=== PATIENT | female | born 1955 | race African-American/Black ===

== ENCOUNTER 2017-07-22 10:19 | Inpatient (IN) | payer OTHER ==
[~2017-07-22] VITALS: Ht 165.1 cm; Wt 74.8 kg
[2017-07-22] MEDS ORDERED: ONDANSETRON PF 4 MG/2 ML VIAL. IV ONE ×2 (11:00→12:15)
[2017-07-22] MEDS ORDERED: FAMOTIDINE 20 MG/2 ML VIAL IVP ONE (11:00)
[2017-07-22] MEDS ORDERED: ASPIRIN 325 MG TABLET PO ONE (11:00)
[2017-07-22 11:01] LABS: BASO % 0 % (0-3); EOS % 0 % (0-3); HEMATOCRIT 42.6 % (36.0-47.0); HEMOGLOBIN 14.7 g/dL (12.0-15.5); LYMPH # 0.9 x10^3/uL (1.0-4.8); LYMPH % 9 % (24-48); MEAN CORPUSCULAR HEMOGLOBIN 33 pg (25-35); MEAN CORPUSCULAR HGB CONC 35 g/dL (31-37); MEAN CORPUSCULAR VOLUME 96 fL (79-100); MONO % 5 % (0-9); NEUT % 85 % (31-73); PLATELET COUNT 134 x10^3/uL (140-400); RED BLOOD COUNT 4.44 x10^6/uL (3.50-5.40); RED CELL DISTRIBUTION WIDTH 14.9 % (11.5-14.5); WHITE BLOOD COUNT 9.7 x10^3/uL (4.0-11.0)
[2017-07-22] MEDS: MORPHINE SULFATE 4 MG/ML DISP.SYRIN. IV/SQ PRN ×2 (11:05→12:28)
[2017-07-22 11:10] LABS: BARBITURATES NEG (NEG); BENZODIAZEPINES NEG (NEG); CANNABINOIDS POS (NEG); COCAINE NEG (NEG); METHADONE NEG (NEG); OPIATES NEG (NEG); PHENCYCLIDINE NEG (NEG)
[2017-07-22 11:12] LABS: CALCIUM 9.1 mg/dL (8.5-10.1); CREATININE 0.9 mg/dL (0.6-1.0); GFR 76.3; POTASSIUM 3.2 mmol/L (3.5-5.1)
[2017-07-22 11:14] LABS: BILIRUBIN,URINE NEGATIVE (NEG); GLUCOSE,URINE NEGATIVE (NEG); NITRITE,URINE NEGATIVE (NEG); PH,URINE 5.5; PROTEIN,URINE 30 mg/dL (NEG-TRACE); UROBILINOGEN,URINE 0.2 mg/dL (0.2 mg/dL)
[2017-07-22 11:19] LABS: ALBUMIN 3.9 g/dL (3.4-5.0); ALBUMIN/GLOBULIN RATIO 1.1 (1.0-1.7); MAGNESIUM 1.3 mg/dL (1.8-2.4); TOTAL BILIRUBIN 1.1 mg/dL (0.2-1.0); TOTAL PROTEIN 7.6 g/dL (6.4-8.2)
[2017-07-22 11:22] LABS: PROTHROMBIN TIME PATIENT 12.1 SEC (11.7-14.0)
--- NOTE | 2017-07-22 11:22 | RAD ---
EXAM: CHEST 1 VIEW DATE: 07/22/2017 History: Chest pain COMPARISON: None available. TECHNIQUE: Single portable radiograph of the chest FINDINGS: The cardiac silhouette is unremarkable. The lungs are clear bilaterally. The costophrenic sulci are clear and well demarcated. IMPRESSION: No radiographic evidence of an acute cardiopulmonary process.
[2017-07-22 11:28] LABS: CKMB MASS 2.2 ng/mL (0.0-3.6)
[2017-07-22] MEDS ORDERED: IOHEXOL 300 MG/ML 75 ML VIAL IV ONE (11:30)
[2017-07-22 11:38] LABS: BACTERIA,URINE FEW /HPF (0-FEW); RBC,URINE 0 /HPF (0-2); SQUAMOUS EPITHELIAL CELL,UR MANY /LPF
[2017-07-22] MEDS ORDERED: CONTRAST GIVEN MC PRN (11:45)
--- NOTE | 2017-07-22 11:54 | EKG ---
[facility] [address] [place] [address] Test Date: 2017-07-22 Test Time: 10:31:08 Pat Name: ROSSANA DALEY Department: Room: Gender: F Services Coordinator: : 1955 Requested By: MIYA DEL RIO Order Number: [id number] Reading MD: [place] Measurements Intervals [place] Rate: 66 P: OK: QRS: -35 QRSD: 92 T: 58 QT: 440 QTc: 463 Interpretive Statements IRREGULAR RHYTHM, NO P-WAVE FOUND ABNORMAL LEFT AXIS DEVIATION R-S TRANSITION ZONE IN V LEADS DISPLACED TO THE RIGHT LEFT ANTERIOR FASCICULAR BLOCK T ABNORMALITY IN HIGH LATERAL LEADS RI6.01 Unconfirmed report No previous ECG available for comparison Electronically Signed On 07-30-2017 16:34:24 CDT by [place]
--- NOTE | 2017-07-22 12:35 | RAD ---
Examination: CT angiogram of the chest. History: History of chest pain Comparison: None available Technique: [place] CT images were performed with IV contrast. Coronal and sagittal 3-D MIP reformats are performed PQRS Compliance Statement: One or more of the following individualized dose reduction techniques were utilized for this examination: 1. Automated exposure control 2. Adjustment of the mA and/or kV according to patient size 3. Use of iterative reconstruction technique Findings: The central airways are patent. The heart size grossly appears unremarkable. The caliber of the aorta grossly appears unremarkable. The lungs are clear. There is no evidence of filling defect identified in the main pulmonary arterial trunk and right and left main pulmonary arteries. There is no evidence of filling defect identified in the visualized lobar, segmental branches of the pulmonary arteries. There is irregularity of the distal esophagus with prominent appearing wall of the distal esophagus at the gastroesophageal junction region with prior surgical changes. Moderate degenerative changes thoracic spine. Impression: 1. No evidence of pulmonary embolism. 2. The lungs are clear. 3. Irregularity identified in the distal aspect of the esophagus could be due to prior surgical changes or mucosal pathology.
[2017-07-22] MEDS ORDERED: IV NORMAL SALINE 1000ML BAG 1,000 ML IV ONE ×2 (12:45→14:30)
--- NOTE | 2017-07-22 12:45 | RAD ---
Examination: CT of the pelvis with IV contrast History: History of abdominal pain comparison: None available Technique: Axial CT images of the abdomen pelvis were performed with IV contrast. Coronal and sagittal reformats are performed PQRS Compliance Statement: One or more of the following individualized dose reduction techniques were utilized for this examination: 1. Automated exposure control 2. Adjustment of the mA and/or kV according to patient size 3. Use of iterative reconstruction technique Findings: The visualized bibasal lungs grossly appears unremarkable. Irregularity identified in the distal aspect of the esophagus. There is mild decreased attenuation noted throughout the liver likely hepatic steatosis. There is a peripheral nodular enhancing density identified in the inferior tip of the right lobe of the liver measuring 1.5 cm likely a hemangioma. The visualized spleen, adrenals grossly appears unremarkable. Surgical clips identified in the left upper quadrant of the abdomen likely prior surgical changes. There is mild fatty atrophic changes of the pancreas. There is minimal fat stranding identified about the pancreas.. The small bowel is nondilated. Serpiginous hyperdensity identified in the right upper quadrant of the abdomen just inferior to the left lobe of the liver probably suture material. The appendix is not identified. Mild thickened appearance of the wall of the ascending colon. Feces and gas noted in the colon. Urinary bladder is mildly distended. The visualized uterus, grossly appears unremarkable. Mild tortuous appearing gonadal veins. The bilateral kidneys enhance symmetrically. No evidence of hydronephrosis. Moderate degenerative changes lumbar spine. Impression: 1. Mild fat stranding identified about the pancreas. Correlate for pancreatitis. 2. Hepatic steatosis. 3. 1.5 cm nodular enhancing lesion identified in the inferior aspect of the right lobe of the liver likely hemangioma. 4. Mild thickened appearance of the wall of the ascending colon, nonspecific , minimal colitis is a possibility.
[2017-07-22] MEDS ORDERED: hydrALAZINE 20 MG/ML VIAL. IVP ONE (13:00)
[2017-07-22] MEDS ORDERED: MAGNESIUM SULFATE 4GM 100 ML IV ONE (13:00)
[2017-07-22 13:05] LABS: PLT ESTIMATE DECREASED (ADEQUATE)
[2017-07-22] MEDS: POTASSIUM CHLORIDE 10MEQ 100 ML IV SCH ×2 (13:39→17:34)
[2017-07-22 14:01] LABS: CHOLESTEROL/HDL RATIO 1.5
--- NOTE | 2017-07-22 14:06 | PDOC2 ---
CARDIAC CONSULT DATE OF CONSULT Date of Consult DATE: 07/22/17 TIME: 13:40 REASON FOR CONSULT Reason for Consult: Chest pain REFERRING PHYSICIAN Referring Physician: Richard SOURCE Source: Chart review, Patient HISTORY OF PRESENT ILLNESS HISTORY OF PRESENT ILLNESS This is a pleasant 62 yo female admitted for complains of abdominal pain and chest pain. Reports that she started having yellow clear then progressed to brownish colored emesis. Started off Wednesday then continued on with her last vomiting episode this am. also associated with feeling of chills but no recorded fever and no diaphoresis. In addition she was also having watery stools but no bloody consistency. Denies any recent antibiotics. Her abdominal pain is throbbing and diffuse but more so painful to left side abdomen with palpation. Her chest pain started yesterday, bilateral chest and more on her lower anterior rib cage region. This was throbbing and sharp and no radiation to jaw, shoulders or arm. Positive for intermittent SOA but mainly when nauseated. Denies any palpitations or passing out. Reports that during this time she has been taking lisinopril and HCTZ but everything she introduce to her GI, food, water, meds, she vomits it. She is significant for gastric resection in 1998 from a stomach CA and has been eating regular amount food and does not practice small portions. Denies any prior CAD, arrhythmia, VTE. Denies any recent fall or injury. Denies any bleeding or clotting disorders. She does take supplemental B12 and Iron for her anemia and does not take any GERD meds. PAST MEDICAL HISTORY Cardiovascular: HTN Pulmonary: No pertinent hx CENTRAL NERVOUS SYSTEM: Other (No pertinent history) Heme/Onc: Anemia NOS, Cancer (stomach) Hepatobiliary: Cholelithiasis Psych: No pertinent hx Musculoskeletal: Osteoarthritis Rheumatologic: No pertinent hx Infectious disease: No pertinent hx ENT: No pertinent hx Renal/: No pertinent hx Endocrine: No pertinent hx Dermatology: No pertinent hx PAST SURGICAL HISTORY Past Surgical History: Arthroscopy (right knee; right ankle fusion and harware removal due to infection), Cholecystectomy, Other (partial gastric resection) FAMILY HISTORY Family History: Coronary Artery Disease (father) SOCIAL HISTORY Smoke: 1 pack per day (>20 yrs) ALCOHOL: none Drugs: None Lives: with Family CURRENT MEDICATIONS CURRENT MEDICATIONS Current Medications Medications (Trade) Dose Ordered Sig/Mo Route PRN Reason Start Time Stop Time Status Last Admin Dose Admin Aspirin (Noemi Aspirin) 325 mg 1X ONCE PO 07/22/17 11:00 07/22/17 11:01 DC 07/22/17 11:04 Morphine Sulfate 4 mg PRN Q15MIN PRN IV/SQ PAIN GREATER THAN 3/10 07/22/17 11:00 07/23/17 10:59 07/22/17 12:28 Ondansetron HCl (Zofran) 4 mg 1X ONCE IV 07/22/17 11:00 07/22/17 11:01 DC 07/22/17 11:04 Famotidine (Pepcid) 20 mg 1X ONCE IVP 07/22/17 11:00 07/22/17 11:01 DC 07/22/17 11:05 Iohexol (Omnipaque 300 Mg/ml) 75 ml 1X ONCE IV 07/22/17 11:30 07/22/17 11:34 DC 07/22/17 11:53 Ondansetron HCl (Zofran) 4 mg 1X ONCE IV 07/22/17 12:15 07/22/17 12:16 DC 07/22/17 12:26 ALLERGIES ALLERGIES: Coded Allergies: Penicillins (Verified Allergy, Intermediate, rash, 07/22/17) coconut (Verified Allergy, Intermediate, RASH, 07/22/17) ROS Review of System 14 point ROS evaluated with pertinent positives noted per HPI PHYSICAL EXAM General: Alert, Oriented X3, Cooperative, No acute distress HEENT: Atraumatic, Mucous membr. moist/pink Lungs: Clear to auscultation, Normal air movement Heart: Regular rate (SR), Normal S1, Normal S2, Other (2/6 systolic murmur to LLS border) Abdomen: Other (diffuse tenderness with more pain to right side abdomen with palpation) Extremities: No cyanosis, No edema Skin: No breakdown, No significant lesion Neuro: Normal speech, Sensation intact Psych/Mental Status: Mental status NL, Mood NL MUSCULOSKELETAL: Osteoarthritic changes both hands VITALS VITALS Vital Signs Date Time Temp Pulse Resp B/P (MAP) Pulse Ox O2 Delivery O2 Flow Rate FiO2 07/22/17 12:28 20 98 Room Air 07/22/17 11:31 50 201/91 (127) 07/22/17 10:30 97.5 97.5 LABS Lab: Laboratory Tests Test 07/22/17 10:50 White Blood Count 9.7 x10^3/uL (4.0-11.0) Red Blood Count 4.44 x10^6/uL (3.50-5.40) Hemoglobin 14.7 g/dL (12.0-15.5) Hematocrit 42.6 % (36.0-47.0) Mean Corpuscular Volume 96 fL (79-100) Mean Corpuscular Hemoglobin 33 pg (25-35) Mean Corpuscular Hemoglobin Concent 35 g/dL (31-37) Red Cell Distribution Width 14.9 % (11.5-14.5) Platelet Count 134 x10^3/uL (140-400) Neutrophils (%) (Auto) 85 % (31-73) Lymphocytes (%) (Auto) 9 % (24-48) Monocytes (%) (Auto) 5 % (0-9) Eosinophils (%) (Auto) 0 % (0-3) Basophils (%) (Auto) 0 % (0-3) Neutrophils # (Auto) 8.3 x10^3uL (1.8-7.7) Lymphocytes # (Auto) 0.9 x10^3/uL (1.0-4.8) Monocytes # (Auto) 0.5 x10^3/uL (0.0-1.1) Eosinophils # (Auto) 0.0 x10^3/uL (0.0-0.7) Basophils # (Auto) 0.0 x10^3/uL (0.0-0.2) Segmented Neutrophils % 80 % (35-66) Band Neutrophils % 5 % (0-9) Lymphocytes % 8 % (24-48) Monocytes % 7 % (0-10) Platelet Estimate Decreased (ADEQUATE) Prothrombin Time 12.1 SEC (11.7-14.0) Prothromb Time International Ratio 1.0 (0.8-1.1) Activated Partial Thromboplast Time 25 SEC (24-38) D-Dimer (Betzy) 2.14 ug/mlFEU (0.00-0.50) Urine Collection Type Unknown Urine Color [place] Urine Clarity Cloudy Urine pH 5.5 Urine Specific Wirt 1.020 Urine Protein 30 mg/dL (NEG-TRACE) Urine Glucose (UA) Negative mg/dL (NEG) Urine Ketones (Stick) Trace mg/dL (NEG) Urine Blood Trace (NEG) Urine Nitrite Negative (NEG) Urine Bilirubin Negative (NEG) Urine Urobilinogen Dipstick 0.2 mg/dL (0.2 mg/dL) Urine Leukocyte Esterase Moderate (NEG) Urine RBC 0 /HPF (0-2) Urine WBC 5-10 /HPF (0-4) Urine Squamous Epithelial Cells Many /LPF Urine Bacteria Few /HPF (0-FEW) Urine Mucus Mod /LPF Sodium Level 137 mmol/L (136-145) Potassium Level 3.2 mmol/L (3.5-5.1) Chloride Level 96 mmol/L (98-107) Carbon Dioxide Level 33 mmol/L (21-32) Anion Gap 8 (6-14) Blood Urea Nitrogen 7 mg/dL (7-20) Creatinine 0.9 mg/dL (0.6-1.0) Estimated GFR (Cockcroft-Gault) 76.3 BUN/Creatinine Ratio 8 (6-20) Glucose Level 153 mg/dL (70-99) Calcium Level 9.1 mg/dL (8.5-10.1) Magnesium Level 1.3 mg/dL (1.8-2.4) Total Bilirubin 1.1 mg/dL (0.2-1.0) Aspartate Amino Transf (AST/SGOT) 117 U/L (15-37) Alanine Aminotransferase (ALT/SGPT) 97 U/L (14-59) Alkaline Phosphatase 165 U/L (46-116) Creatine Kinase 273 U/L (26-192) Creatine Kinase MB (Mass) 2.2 ng/mL (0.0-3.6) Creatine Kinase MB Relative Index 0.8 % (0-4) Troponin I Quantitative 0.167 ng/mL (0.000-0.055) SF-Cfl-Y-Type Natriuretic Peptide 2270 pg/mL (0-124) Total Protein 7.6 g/dL (6.4-8.2) Albumin 3.9 g/dL (3.4-5.0) Albumin/Globulin Ratio 1.1 (1.0-1.7) Lipase 1213 U/L (73-393) Thyroid Stimulating Hormone (TSH) 1.864 uIU/mL (0.358-3.74) Urine Opiates Screen Neg (NEG) Urine Methadone Screen Neg (NEG) Urine Barbiturates Neg (NEG) Urine Phencyclidine Screen Neg (NEG) Urine Amphetamine/Methamphetamine Neg (NEG) Urine Benzodiazepines Screen Neg (NEG) Urine Cocaine Screen Neg (NEG) Urine Cannabinoids Screen Pos (NEG) Ethyl Alcohol Level < 10 mg/dL (0-10) Urine Ethyl Alcohol Neg (NEG) ASSESSMENT/PLAN ASSESSMENT/PLAN 1. Atypical CP: Likely MSK from retching in regards to persistent n/v 2. Abdominal pain with n/v/diarrhea and possible pancreatitis/colitis: GI symptoms since Wednesday 3. Dehydration: due to fluid loss 4. Possible UTI: No ureterorenal lithiasis per CT. per PCP 5. Elevated troponin: initial at 0.167. Possibly demand mediated. EKG with subtle ST depression to precordial leads likely from lyte deficiency. 6. Hypokalemia/Hypomagnesemia 7. Accelerated HTN: from inadequate med absorption and pain 8. Hx of stomach CA with partial gastric resection: in 1998 no chemo or radiation. 9. Sinus bradycardia: unknown baseline, noted mainly in 50s, F & E shifts contributing Recommendations 1. Presently NPO, consult GI. Start on IVF 2. Replace K and Mg. TTE today 3. Trend troponin and will repeat EKG in AM. Will plan for ischemic w/u likely MPI once GI issues are better. 4. Will place on Hydralazine IV PRN. Will place on PO BP meds once GI is better. Will place on routine NTG paste if BP remains uncontrolled if HR is > 50. 5. Lipid panel. Hold ACEi/HCTZ Problems: BARBER NIELSON APRN Jul 22, 2017 14:06
[2017-07-22] MEDS ORDERED: LISI10TA2 PO (14:12)
[2017-07-22] MEDS ORDERED: HYDR25TA9 PO (14:12)
[2017-07-22] MEDS ORDERED: hydrALAZINE 20 MG/ML VIAL. IVP PRN (14:15)
[2017-07-22] MEDS ORDERED: CYAN10002 IJ (14:22)
--- NOTE | 2017-07-22 14:22 | PHYS DOC ---
Past Medical History Past Medical History: Cancer, Hypertension, Kidney Stone, Other Additional Past Medical Histor: STOMACH CA Past Surgical History: Other Additional Past Surgical Histo: STOMACH CA SURG,R ORIF ANKLE & REMOVAL OF HARDWARE Alcohol Use: Heavy Additional Information: DRINKS 6 PACK OF BEER EVERYDAY Drug Use: None Adult General Chief Complaint Chief Complaint: MULTIPLE COMPLAINTS HPI HPI Patient is a 62 year old female with a history of hypertension, alcoholism, kidney stones, pancreatitis, who presents today with multiple complaints. Patient is also complaining of moderate left as well as right chest pain that began 2 days ago. Patient states the pain is worse on deep breaths, she is also complaining of shortness of breath. Patient states nothing relieves her chest pain. Patient is also complaining of moderate bilateral upper abdominal pain with nausea vomiting and diarrhea for 4 days. Patient states she is alcoholic and drinks 6 packs of beer every day. Patient denies any hematemesis or melena. She is very restless moving up and down in bed. Review of Systems Review of Systems Constitutional: Denies fever or chills [] Eyes: Denies change in visual acuity, redness, or eye pain [] HENT: Denies nasal congestion or sore throat [] Respiratory: Denies cough or shortness of breath [] Cardiovascular: Bilateral chest pain GI: abdominal pain, nausea, vomiting, and diarrhea [] : Denies dysuria or hematuria [] Musculoskeletal: Denies back pain or joint pain [] Integument: Denies rash or skin lesions [] Neurologic: Denies headache, focal weakness or sensory changes [] Current Medications Current Medications Current Medications Medications (Trade) Dose Ordered Sig/[facility] Start Time Stop Time Status Last Admin Dose Admin Aspirin (Noemi Aspirin) 325 mg 1X ONCE 07/22/17 11:00 07/22/17 11:01 DC 07/22/17 11:04 325 MG Famotidine (Pepcid) 20 mg 1X ONCE 07/22/17 11:00 07/22/17 11:01 DC 07/22/17 11:05 20 MG Hydralazine HCl (Apresoline) 10 mg 1X ONCE 07/22/17 13:00 07/22/17 13:01 DC 07/22/17 13:37 10 MG Info (Do NOT chart on this entry -- for MONITORING) 1 each PRN DAILY PRN 07/22/17 11:45 07/24/17 11:44 Iohexol (Omnipaque 300 Mg/ml) 75 ml 1X ONCE 07/22/17 11:30 07/22/17 11:34 DC 07/22/17 11:53 75 ML Magnesium Sulfate/ Dextrose 100 ml @ 25 mls/hr 1X ONCE 07/22/17 13:00 07/22/17 16:59 DC 07/22/17 13:43 25 MLS/HR Morphine Sulfate 4 mg PRN Q15MIN PRN 07/22/17 11:00 07/22/17 17:07 DC 07/22/17 12:28 4 MG Ondansetron HCl (Zofran) 4 mg 1X ONCE 07/22/17 12:15 07/22/17 12:16 DC 07/22/17 12:26 4 MG Potassium Chloride 100 ml @ 100 mls/hr Q1HR 07/22/17 13:00 07/22/17 14:59 DC 07/22/17 17:34 100 MLS/HR Sodium Chloride 1,000 ml @ 100 mls/hr 1X ONCE 07/22/17 12:45 07/22/17 22:44 DC 07/22/17 13:35 100 MLS/HR Allergies Allergies Allergies Coded Allergies Type Severity Reaction Last Updated Verified Penicillins Allergy Intermediate rash 07/22/17 Yes coconut Allergy Intermediate RASH 07/22/17 Yes Physical Exam Physical Exam Constitutional: Well developed, well nourished, patient is writhing in bed, non -toxic appearance. [] HENT: Normocephalic, atraumatic, bilateral external ears normal, oropharynx moist, no oral exudates, nose normal. [] Eyes: PERRLA, EOMI, conjunctiva normal, no discharge. [] Neck: Normal range of motion, no tenderness, supple, no stridor. [] Cardiovascular:Heart rate regular rhythm, no murmur [] Lungs & Thorax: Bilateral breath sounds clear to auscultation [] Abdomen: Flat abdomen. Bowel sounds normal, soft, diffuse tenderness to bilateral upper abdomen, no tenderness to the lower back, no masses, no pulsatile masses. [] Skin: Warm, dry, no erythema, no rash. [] Back: No tenderness, no CVA tenderness. [] Extremities: No tenderness, no cyanosis, no clubbing, ROM intact, no edema. [] Neurologic: Alert and oriented X 3, normal motor function, normal sensory function, no focal deficits noted. [] Psychologic: Affect normal, judgement normal, mood normal. [] Current Patient Data Vital Signs Vital Signs Date Time Temp Pulse Resp B/P (MAP) Pulse Ox O2 Delivery O2 Flow Rate FiO2 07/22/17 12:58 54 183/81 (115) 98 Room Air 07/22/17 12:58 18 07/22/17 10:30 97.5 97.5 Lab Values Laboratory Tests Test 07/22/17 10:50 White Blood Count 9.7 x10^3/uL (4.0-11.0) Red Blood Count 4.44 x10^6/uL (3.50-5.40) Hemoglobin 14.7 g/dL (12.0-15.5) Hematocrit 42.6 % (36.0-47.0) Mean Corpuscular Volume 96 fL (79-100) Mean Corpuscular Hemoglobin 33 pg (25-35) Mean Corpuscular Hemoglobin Concent 35 g/dL (31-37) Red Cell Distribution Width 14.9 % (11.5-14.5) H Platelet Count 134 x10^3/uL (140-400) L Neutrophils (%) (Auto) 85 % (31-73) H Lymphocytes (%) (Auto) 9 % (24-48) L Monocytes (%) (Auto) 5 % (0-9) Eosinophils (%) (Auto) 0 % (0-3) Basophils (%) (Auto) 0 % (0-3) Neutrophils # (Auto) 8.3 x10^3uL (1.8-7.7) H Lymphocytes # (Auto) 0.9 x10^3/uL (1.0-4.8) L Monocytes # (Auto) 0.5 x10^3/uL (0.0-1.1) Eosinophils # (Auto) 0.0 x10^3/uL (0.0-0.7) Basophils # (Auto) 0.0 x10^3/uL (0.0-0.2) Segmented Neutrophils % 80 % (35-66) H Band Neutrophils % 5 % (0-9) Lymphocytes % 8 % (24-48) L Monocytes % 7 % (0-10) Platelet Estimate Decreased (ADEQUATE) Prothrombin Time 12.1 SEC (11.7-14.0) Prothrombin Time INR 1.0 (0.8-1.1) PTT 25 SEC (24-38) D-Dimer (Betzy) 2.14 ug/mlFEU (0.00-0.50) H Urine Collection Type Unknown Urine Color [place] Urine Clarity Cloudy Urine pH 5.5 Urine Specific [place] 1.020 Urine Protein 30 mg/dL (NEG-TRACE) Urine Glucose (UA) Negative mg/dL (NEG) Urine Ketones (Stick) Trace mg/dL (NEG) Urine Blood Trace (NEG) Urine Nitrite Negative (NEG) Urine Bilirubin Negative (NEG) Urine Urobilinogen Dipstick 0.2 mg/dL (0.2 mg/dL) Urine Leukocyte Esterase Moderate (NEG) Urine RBC 0 /HPF (0-2) Urine WBC 5-10 /HPF (0-4) Urine Squamous Epithelial Cells Many /LPF Urine Bacteria Few /HPF (0-FEW) Urine Mucus Mod /LPF Sodium Level 137 mmol/L (136-145) Potassium Level 3.2 mmol/L (3.5-5.1) L Chloride Level 96 mmol/L (98-107) L Carbon Dioxide Level 33 mmol/L (21-32) H Anion Gap 8 (6-14) Blood Urea Nitrogen 7 mg/dL (7-20) Creatinine 0.9 mg/dL (0.6-1.0) Estimated GFR (Cockcroft-Gault) 76.3 BUN/Creatinine Ratio 8 (6-20) Glucose Level 153 mg/dL (70-99) H Calcium Level 9.1 mg/dL (8.5-10.1) Magnesium Level 1.3 mg/dL (1.8-2.4) L Total Bilirubin 1.1 mg/dL (0.2-1.0) H Aspartate Amino Transferase (AST) 117 U/L (15-37) H Alanine Aminotransferase (ALT) 97 U/L (14-59) H Alkaline Phosphatase 165 U/L (46-116) H Creatine Kinase 273 U/L (26-192) H Creatine Kinase MB (Mass) 2.2 ng/mL (0.0-3.6) Creatine Kinase MB Relative Index 0.8 % (0-4) Troponin I Quantitative 0.167 ng/mL (0.000-0.055) QK-Hga-Z-Type Natriuretic Peptide 2270 pg/mL (0-124) H Total Protein 7.6 g/dL (6.4-8.2) Albumin 3.9 g/dL (3.4-5.0) Albumin/Globulin Ratio 1.1 (1.0-1.7) Triglycerides Level 78 mg/dL (0-150) Cholesterol Level 182 mg/dL (0-200) LDL Cholesterol, Calculated 47 mg/dL (0-100) VLDL Cholesterol, Calculated 16 mg/dL (0-40) Non-HDL Cholesterol Calculated 63 mg/dL (0-129) HDL Cholesterol 119 mg/dL (40-60) H Cholesterol/HDL Ratio 1.5 Amylase Level 136 U/L (25-115) H Lipase 1213 U/L (73-393) H Thyroid Stimulating Hormone (TSH) 1.864 uIU/mL (0.358-3.74) Urine Opiates Screen Neg (NEG) Urine Methadone Screen Neg (NEG) Urine Barbiturates Neg (NEG) Urine Phencyclidine Screen Neg (NEG) Urine Amphetamine/Methamphetamine Neg (NEG) Urine Benzodiazepines Screen Neg (NEG) Urine Cocaine Screen Neg (NEG) Urine Cannabinoids Screen Pos (NEG) Ethyl Alcohol Level < 10 mg/dL (0-10) Urine Ethyl Alcohol Neg (NEG) Laboratory Tests 07/22/17 10:50 Laboratory Tests 07/22/17 10:50 EKG EKG Interpreted by Dr. Dennis, sinus rhythm, inverted T waves at leads V4 and V3, heart rate 66, no STEMI. Radiology/Procedures Radiology/Procedures []PROCEDURE: CT ABD PELV W/ IV CONTRST ONLY Examination: CT of the pelvis with IV contrast History: History of abdominal pain comparison: None available Technique: Axial CT images of the abdomen pelvis were performed with IV contrast. Coronal and sagittal reformats are performed PQRS Compliance Statement: One or more of the following individualized dose reduction techniques were utilized for this examination: 1. Automated exposure control 2. Adjustment of the mA and/or kV according to patient size 3. Use of iterative reconstruction technique Findings: The visualized bibasal lungs grossly appears unremarkable. Irregularity identified in the distal aspect of the esophagus. There is mild decreased attenuation noted throughout the liver likely hepatic steatosis. There is a peripheral nodular enhancing density identified in the inferior tip of the right lobe of the liver measuring 1.5 cm likely a hemangioma. The visualized spleen, adrenals grossly appears unremarkable. Surgical clips identified in the left upper quadrant of the abdomen likely prior surgical changes. There is mild fatty atrophic changes of the pancreas. There is minimal fat stranding identified about the pancreas.. The small bowel is nondilated. Serpiginous hyperdensity identified in the right upper quadrant of the abdomen just inferior to the left lobe of the liver probably suture material. The appendix is not identified. Mild thickened appearance of the wall of the ascending colon. Feces and gas noted in the colon. Urinary bladder is mildly distended. PROCEDURE: CT ANGIOGRAPHY CHEST Examination: CT angiogram of the chest. History: History of chest pain Comparison: None available Technique: [place] CT images were performed with IV contrast. Coronal and sagittal 3-D MIP reformats are performed PQRS Compliance Statement: One or more of the following individualized dose reduction techniques were utilized for this examination: 1. Automated exposure control 2. Adjustment of the mA and/or kV according to patient size 3. Use of iterative reconstruction technique Findings: The central airways are patent. The heart size grossly appears unremarkable. The caliber of the aorta grossly appears unremarkable. The lungs are clear. There is no evidence of filling defect identified in the main pulmonary arterial trunk and right and left main pulmonary arteries. There is no evidence of filling defect identified in the visualized lobar, segmental branches of the pulmonary arteries. There is irregularity of the distal esophagus with prominent appearing wall of the distal esophagus at the gastroesophageal junction region with prior surgical changes. Moderate degenerative changes thoracic spine. Impression: 1. No evidence of pulmonary embolism. 2. The lungs are clear. 3. Irregularity identified in the distal aspect of the esophagus could be due to prior surgical changes or mucosal pathology. DICTATED and SIGNED BY: GENNY SCOTT MD DATE: 07/22/17 2258 CC: MIYA DEL RIO APRN; NON,STAFF; UNKNOWN PCP NAME ~ Course & Med Decision Making Course & Med Decision Making Pertinent Labs and Imaging studies reviewed. (See chart for details) This is a 62-year-old female patient presenting to the ED today with chest pain for 2 days abdominal pain nausea vomiting and diarrhea for 4 days. Patient has history of alcoholism and head a 6 packs of beer yesterday. Troponin 0.167., EKG was noted for inverted T waves as documented on EKG tab, renal function is normal, lipase 1213, d-dimer was elevated at 2.14, CTA chest with the abdomen and pelvic was ordered here and CTA chest was negative for any acute findings. CT of the abdomen and pelvic was noted for pancreatitis, colitis. Patient was given aspirin and morphine on arrival to the ED with improvement of her pain, with heart rates in the 50s. Her blood pressure was noted to be elevated at 211/88, she was started on hydralazine. Consulted with Lorie CHARLES for cardiology, she will follow-up with patient. Consulted with Dr. Hunt who accepted patient for admission. GI consult was placed. Patient was admitted in stable condition. Dragon Disclaimer Dragon Disclaimer This electronic medical record was generated, in whole or in part, using a voice recognition dictation system. Departure Departure Impression: Primary Impression: Chest pain Additional Impressions: Elevated troponin Acute pancreatitis Alcohol abuse Colitis Accelerated hypertension Disposition: ADMITTED INPATIENT Condition: STABLE Referrals: UNKNOWN PCP NAME (PCP) Problem Qualifiers Primary Impression: Chest pain Chest pain type: chest pain on breathing Qualified Codes: R07.1 - Chest pain on breathing Additional Impressions: Acute pancreatitis Pancreatitis type: alcohol induced Acute pancreatitis complication: unspecified Qualified Codes: K85.20 - Alcohol induced acute pancreatitis without necrosis or infection MIYA DEL RIO TRAIN ENGINEER Jul 22, 2017 14:22
[2017-07-22] MEDS ORDERED: MORPHINE SULFATE 4 MG/ML DISP.SYRIN. IV PRN (14:30)
[2017-07-22] MEDS ORDERED: ONDANSETRON PF 4 MG/2 ML VIAL. IV PRN (14:30)
[2017-07-22] MEDS ORDERED: NITROGLYCERIN SUBLINGUAL 0.4 MG BOTTLE OF 25. SL PRN (14:30)
[2017-07-22] MEDS ORDERED: ACETAMINOPHEN 325 MG TABLET. PO PRN (14:30)
--- NOTE | 2017-07-22 15:51 | PDOC2 ---
GI CONSULT Reason For Consult: Possible pancreatitis, h/o gastric resection HPI: HPI: 62 y/o female seen in ER. Has been ill since Wednesday (07/18/17). Began with stuffy nose, then the next day awoke w/ diffuse abdominal pain ("choking"), vomiting, and watery green-brown diarrhea. Has not taken much PO since then, has even had difficulty taking pills. Pain is a little better now, most bothersome under ribs and around left breast into chest, some into back. H/o stomach cancer w/ some sort of resection @ in 1998. No EGD since. Takes B12 inj Q month + iron supplements. Only rare heartburn. Takes BC powder regularly. No chronic issues w/ diarrhea or constipation. Weight loss (says > 100 pounds) - at first intentional and now w/ decreased appetite. No hematemesis, hematochezia, or melena. Colonoscopy @ earlier this year reportedly showed 3 polyps. S/p cholecystectomy for gallstones. No h/o liver or pancreas issues. Drinks a 6 pack of beer daily. Labs: elevated BNP, troponin, and D-dimer w/ low Mg and K, bili 1.1, AST 117, ALT 97, Alk Phos 165, lipase 1213. Chest CTA negative for PE. CT A/P shows mild fat stranding identified about the pancreas, hepatic steatosis, likely hemangioma, and mild non-specific colonic wall thickening. PMH: PMH: HTN, anemia, stomach cancer s/p resection, cholelithiasis s/p cholecystectomy, right knee arthroscopy, right ankle fusion/hardware removal FH: Family History: No pertinent hx Social History: Smoke: 1 pack per day ALCOHOL: heavy (6 pack of beer daily) Drugs: Marijuana ROS: GEN: +fever HEENT: Denies blurred vision, sore throat CV: +left chest pain RESP: +SOA GI: Per HPI : Denies hematuria, dysuria ENDO: +weight loss NEURO: +lightheadedness MSK: +muscle spasms SKIN: Denies jaundice, pruritus Vitals: Vitals: Vital Signs Date Time Temp Pulse Resp B/P (MAP) Pulse Ox O2 Delivery O2 Flow Rate FiO2 07/22/17 14:42 62 18 145/67 (93) 99 Room Air 07/22/17 10:30 97.5 97.5 Labs: Labs: Laboratory Tests Test 07/22/17 10:50 White Blood Count 9.7 x10^3/uL (4.0-11.0) Red Blood Count 4.44 x10^6/uL (3.50-5.40) Hemoglobin 14.7 g/dL (12.0-15.5) Hematocrit 42.6 % (36.0-47.0) Mean Corpuscular Volume 96 fL (79-100) Mean Corpuscular Hemoglobin 33 pg (25-35) Mean Corpuscular Hemoglobin Concent 35 g/dL (31-37) Red Cell Distribution Width 14.9 % (11.5-14.5) Platelet Count 134 x10^3/uL (140-400) Neutrophils (%) (Auto) 85 % (31-73) Lymphocytes (%) (Auto) 9 % (24-48) Monocytes (%) (Auto) 5 % (0-9) Eosinophils (%) (Auto) 0 % (0-3) Basophils (%) (Auto) 0 % (0-3) Neutrophils # (Auto) 8.3 x10^3uL (1.8-7.7) Lymphocytes # (Auto) 0.9 x10^3/uL (1.0-4.8) Monocytes # (Auto) 0.5 x10^3/uL (0.0-1.1) Eosinophils # (Auto) 0.0 x10^3/uL (0.0-0.7) Basophils # (Auto) 0.0 x10^3/uL (0.0-0.2) Segmented Neutrophils % 80 % (35-66) Band Neutrophils % 5 % (0-9) Lymphocytes % 8 % (24-48) Monocytes % 7 % (0-10) Platelet Estimate Decreased (ADEQUATE) Prothrombin Time 12.1 SEC (11.7-14.0) Prothromb Time International Ratio 1.0 (0.8-1.1) Activated Partial Thromboplast Time 25 SEC (24-38) D-Dimer (Betzy) 2.14 ug/mlFEU (0.00-0.50) Urine Collection Type Unknown Urine Color [place] Urine Clarity Cloudy Urine pH 5.5 Urine Specific [place] 1.020 Urine Protein 30 mg/dL (NEG-TRACE) Urine Glucose (UA) Negative mg/dL (NEG) Urine Ketones (Stick) Trace mg/dL (NEG) Urine Blood Trace (NEG) Urine Nitrite Negative (NEG) Urine Bilirubin Negative (NEG) Urine Urobilinogen Dipstick 0.2 mg/dL (0.2 mg/dL) Urine Leukocyte Esterase Moderate (NEG) Urine RBC 0 /HPF (0-2) Urine WBC 5-10 /HPF (0-4) Urine Squamous Epithelial Cells Many /LPF Urine Bacteria Few /HPF (0-FEW) Urine Mucus Mod /LPF Sodium Level 137 mmol/L (136-145) Potassium Level 3.2 mmol/L (3.5-5.1) Chloride Level 96 mmol/L (98-107) Carbon Dioxide Level 33 mmol/L (21-32) Anion Gap 8 (6-14) Blood Urea Nitrogen 7 mg/dL (7-20) Creatinine 0.9 mg/dL (0.6-1.0) Estimated GFR (Cockcroft-Gault) 76.3 BUN/Creatinine Ratio 8 (6-20) Glucose Level 153 mg/dL (70-99) Calcium Level 9.1 mg/dL (8.5-10.1) Magnesium Level 1.3 mg/dL (1.8-2.4) Total Bilirubin 1.1 mg/dL (0.2-1.0) Aspartate Amino Transf (AST/SGOT) 117 U/L (15-37) Alanine Aminotransferase (ALT/SGPT) 97 U/L (14-59) Alkaline Phosphatase 165 U/L (46-116) Creatine Kinase 273 U/L (26-192) Creatine Kinase MB (Mass) 2.2 ng/mL (0.0-3.6) Creatine Kinase MB Relative Index 0.8 % (0-4) Troponin I Quantitative 0.167 ng/mL (0.000-0.055) JV-Cpp-C-Type Natriuretic Peptide 2270 pg/mL (0-124) Total Protein 7.6 g/dL (6.4-8.2) Albumin 3.9 g/dL (3.4-5.0) Albumin/Globulin Ratio 1.1 (1.0-1.7) Triglycerides Level 78 mg/dL (0-150) Cholesterol Level 182 mg/dL (0-200) LDL Cholesterol, Calculated 47 mg/dL (0-100) VLDL Cholesterol, Calculated 16 mg/dL (0-40) Non-HDL Cholesterol Calculated 63 mg/dL (0-129) HDL Cholesterol 119 mg/dL (40-60) Cholesterol/HDL Ratio 1.5 Amylase Level 136 U/L (25-115) Lipase 1213 U/L (73-393) Thyroid Stimulating Hormone (TSH) 1.864 uIU/mL (0.358-3.74) Urine Opiates Screen Neg (NEG) Urine Methadone Screen Neg (NEG) Urine Barbiturates Neg (NEG) Urine Phencyclidine Screen Neg (NEG) Urine Amphetamine/Methamphetamine Neg (NEG) Urine Benzodiazepines Screen Neg (NEG) Urine Cocaine Screen Neg (NEG) Urine Cannabinoids Screen Pos (NEG) Ethyl Alcohol Level < 10 mg/dL (0-10) Urine Ethyl Alcohol Neg (NEG) Allergies: Coded Allergies: Penicillins (Verified Allergy, Intermediate, rash, 07/22/17) coconut (Verified Allergy, Intermediate, RASH, 07/22/17) Medications: Current Medications Medications (Trade) Dose Ordered Sig/Mo Route PRN Reason Start Time Stop Time Status Last Admin Dose Admin Aspirin (Noemi Aspirin) 325 mg 1X ONCE PO 07/22/17 11:00 07/22/17 11:01 DC 07/22/17 11:04 Morphine Sulfate 4 mg PRN Q15MIN PRN IV/SQ PAIN GREATER THAN 3/10 07/22/17 11:00 07/23/17 10:59 07/22/17 12:28 Ondansetron HCl (Zofran) 4 mg 1X ONCE IV 07/22/17 11:00 07/22/17 11:01 DC 07/22/17 11:04 Famotidine (Pepcid) 20 mg 1X ONCE IVP 07/22/17 11:00 07/22/17 11:01 DC 07/22/17 11:05 Iohexol (Omnipaque 300 Mg/ml) 75 ml 1X ONCE IV 07/22/17 11:30 07/22/17 11:34 DC 07/22/17 11:53 Ondansetron HCl (Zofran) 4 mg 1X ONCE IV 07/22/17 12:15 07/22/17 12:16 DC 07/22/17 12:26 Potassium Chloride 100 ml @ 100 mls/hr Q1HR IV 07/22/17 13:00 07/22/17 14:59 DC 07/22/17 13:39 Magnesium Sulfate/ Dextrose 100 ml @ 25 mls/hr 1X ONCE IV 07/22/17 13:00 07/22/17 16:59 07/22/17 13:43 Sodium Chloride 1,000 ml @ 100 mls/hr 1X ONCE IV 07/22/17 12:45 07/22/17 22:44 07/22/17 13:35 Hydralazine HCl (Apresoline) 10 mg 1X ONCE IVP 07/22/17 13:00 07/22/17 13:01 DC 07/22/17 13:37 Imaging: Imaging: CXR IMPRESSION: No radiographic evidence of an acute cardiopulmonary process. CT A/P w/ IV contrast Impression: 1. Mild fat stranding identified about the pancreas. Correlate for pancreatitis. 2. Hepatic steatosis. 3. 1.5 cm nodular enhancing lesion identified in the inferior aspect of the right lobe of the liver likely hemangioma. 4. Mild thickened appearance of the wall of the ascending colon, nonspecific, minimal colitis is a possibility. CT Angio Chest Impression: 1. No evidence of pulmonary embolism. 2. The lungs are clear. 3. Irregularity identified in the distal aspect of the esophagus could be due to prior surgical changes or mucosal pathology. PE: GEN: NAD HEENT: Atraumatic, PERRL LUNGS: CTAB anteriorly HEART: RRR, sternal tenderness ABD: BS+, soft, tender diagonally from LLQ to RUQ but worst pain is epigastric EXTREMITY: No edema SKIN: No rashes, no jaundice NEURO/PSYCH: A & O 3 A/P: A/P: Chest/abd pain, vomiting, diarrhea -acute onset 4-5 days ago, unable to take much PO -s/p cholecystectomy Elevated troponin -per cardiology Elevated lipase, LFTs -on CT: mild fat stranding identified about the pancreas, hepatic steatosis, likely hemangioma, and mild non-specific colonic wall thickening. H/o gastric cancer w/ resection -at in 1998, on B12 and iron CRC screen, h/o colon polyps -colonoscopy @ this year Substance abuse Weight loss -- Possible pancreatitis vs viral illness. Try clear liquids, supportive care. Continue workup per cardiology. PALMA IRVING Jul 22, 2017 15:51
[2017-07-22 16:00] VITALS: BP 164/75
[2017-07-22] MEDS ORDERED: ASPI500T16 PO (16:46)
[2017-07-22] MEDS ORDERED: SOD BICARB PO PRN (17:00)
[2017-07-22] MEDS ORDERED: CITRIC ACID PO PRN (17:00)
[2017-07-22] MEDS ORDERED: ASPIRIN PO PRN (17:00)
[2017-07-22] MEDS: MORPHINE SULFATE 4 MG/ML DISP.SYRIN. IV PRN (17:13)
[2017-07-22] MEDS: POTASSIUM CHLORIDE 30 MEQ in IV 1/2 NORMAL SALINE 1,000 ML IV SCH (17:29)
--- NOTE | 2017-07-22 19:12 | HP ---
ADMIT DATE: 07/22/2017 CHIEF COMPLAINT: Nausea, vomiting, diarrhea. HISTORY OF PRESENT ILLNESS: The patient is a 62-year-old woman with past medical history of hypertension and alcohol abuse who presented to the Emergency Room with 4+ days of nausea, vomiting as well as diarrhea. She relates that this has been going on since Wednesday. She denies any fevers or chills. No other persons in her close vicinity has similar issues at this time, although grandchildren apparently have head colds. She relates that currently she is unable to keep anything down including water. Vomiting actually has gotten a little better since she presented to the Emergency Room. Her last bowel movement was in the middle of the night several hours prior to presentation. She feels a little better here with IV fluids and medications. Of note, she has a significant history with apparently stomach cancer, status post resection in 1998, and she is on B12 and iron supplements. She continues to follow up at [facility] and apparently had a colonoscopy earlier this year. She is also status post cholecystectomy. PAST MEDICAL HISTORY: Hypertension, stomach cancer as above, anemia, status post cholecystectomy, knee and ankle surgery. FAMILY HISTORY: Hypertension. SOCIAL HISTORY: Lives with her roommate, smokes about a pack a day, drinks 6-12 beers a day, smokes marijuana occasionally. ALLERGIES: PENICILLINS AND COCONUT. MEDICATIONS: MAR reconciled with home medications. REVIEW OF SYSTEMS: Positive as per HPI. Nausea, vomiting and diarrhea seem to have subsided here. She feels much better. She does have significant pain along her diaphragm, especially with deep breathing and coughing. Pain does not radiate anywhere, denies any abdominal pain, however. Denies any other symptoms in rest of organ system review. PHYSICAL EXAMINATION: VITAL SIGNS: From today show a blood pressure of 164/75, heart rate at 59, respiratory rate at 18. She is afebrile. GENERAL: This is a well-nourished, well-developed 62-year-old woman, alert and oriented, in no acute distress, very pleasant. HEENT: Shows no scleral icterus. NECK: Supple. LUNGS: Clear to auscultation bilaterally. HEART: Regular rate and rhythm without any murmurs. ABDOMEN: Has positive bowel sounds, soft, nontender. EXTREMITIES: Show no edema. SKIN: Warm, soft and dry without any rash. LABORATORY DATA: CBC with a WBC of 9.7, hemoglobin 14.7, platelets of 134. Chemistries with a BUN and creatinine of 7 and 0.9, potassium at 3.2, glucose at 153. LFTs with an AST, ALT of 117 and 97, total bilirubin at 1.1, magnesium 1.3. Lipase at 1213. ProBNP at 2270. Initial troponin 0.167. IMAGING: Chest CTA shows no evidence of pulmonary embolism. There is an irregularity identified in the distal aspect of the esophagus, could be due to prior surgical changes. CT of the abdomen and pelvis shows surgical clips in the left upper quadrant, mildly fatty atrophic changes of the pancreas and minimal fat stranding identified about the pancreas. ASSESSMENT AND PLAN: The patient is a 62-year-old alcoholic with hypertension, who presents with abdominal pain, nausea, and vomiting. Suspect this is pancreatitis, most likely alcohol related. I have to rule out stone pathology, although none is mentioned on CAT scans. We will keep her n.p.o. for now. IV fluids will be administered. Pain medications IV as needed. She has elevated troponins. We will follow those serially. Cardiology consult will be obtained for further management. Hypertension is indeed poorly controlled. We will add IV p.r.n. medications in the form of hydralazine to this. Heart rate is actually relatively slow already. We will obtain risk stratification with lipid profile and hemoglobin A1c as well. For prophylaxis, she will be started on Lovenox. NANCY DANG MD DR: JAY/jimbo JOB#: [id number] / [id number] CHUCK
[2017-07-22 19:40] VITALS: BP 140/78
[2017-07-22] MEDS: FAMOTIDINE 20 MG/2 ML VIAL IVP SCH (20:48)
[2017-07-22 22:18] VITALS: BP 140/78
[2017-07-23 02:00] VITALS: BP 145/88
[2017-07-23] MEDS: MORPHINE SULFATE 4 MG/ML DISP.SYRIN. IV PRN ×2 (02:05→08:52)
[2017-07-23] MEDS: POTASSIUM CHLORIDE 30 MEQ in IV 1/2 NORMAL SALINE 1,000 ML IV SCH ×3 (03:04→17:54)
[2017-07-23 05:26] LABS: BASO % 0 % (0-3); EOS % 0 % (0-3); HEMATOCRIT 42.3 % (36.0-47.0); HEMOGLOBIN 13.5 g/dL (12.0-15.5); LYMPH # 1.1 x10^3/uL (1.0-4.8); LYMPH % 9 % (24-48); MEAN CORPUSCULAR HEMOGLOBIN 32 pg (25-35); MEAN CORPUSCULAR HGB CONC 32 g/dL (31-37); MEAN CORPUSCULAR VOLUME 100 fL (79-100); MONO % 7 % (0-9); NEUT % 84 % (31-73); PLATELET COUNT 113 x10^3/uL (140-400); RED BLOOD COUNT 4.25 x10^6/uL (3.50-5.40); RED CELL DISTRIBUTION WIDTH 14.8 % (11.5-14.5); WHITE BLOOD COUNT 12.5 x10^3/uL (4.0-11.0)
[2017-07-23 06:27] LABS: ALBUMIN 3.6 g/dL (3.4-5.0); ALBUMIN/GLOBULIN RATIO 0.9 (1.0-1.7); CALCIUM 9.2 mg/dL (8.5-10.1); CREATININE 0.7 mg/dL (0.6-1.0); GFR 101.9; POTASSIUM 3.5 mmol/L (3.5-5.1); TOTAL BILIRUBIN 0.7 mg/dL (0.2-1.0); TOTAL PROTEIN 7.4 g/dL (6.4-8.2)
[2017-07-23 06:42] LABS: MAGNESIUM 2.9 mg/dL (1.8-2.4)
[2017-07-23 07:00] VITALS: BP 148/75
[2017-07-23] MEDS ORDERED: hydroCHLOROthiazide 25 MG TABLET PO SCH (09:00)
--- NOTE | 2017-07-23 09:54 | PDOC ---
PROGRESS NOTES Chief Complaint Chief Complaint Troponin leak EtOH Pancreatitis ASSESSMENT AND PLAN: 1. Troponin leak: decreasing. cardiology following. Lipid profile WNL 2. Chest pain: persisting, although unclear if cardiac or GI. appreciate GI service input; pt has hx of gastric resection, which may complicate issue 3. HTN: not well controlled. with borderline tessy, will increase home lisinopril. cont PRN hydralazine 4. Pancreatitis: improving lipase. suspect EtOH etiology. clear liquids today. 5. Pain control: Morphine PRN 6. Hepatitis: persisting transaminitis. suspect EtOH. hep panel pending 7. EtOH abuse: monitor wor W/D sx 8. Prophylaxis: on Lovenox, H2B. History of Present Illness History of Present Illness c/o pain in pelvis and epigastric area. no SOB, dizziness, tremors, N/V Vitals Vitals Vital Signs Date Time Temp Pulse Resp B/P (MAP) Pulse Ox O2 Delivery O2 Flow Rate FiO2 07/23/17 08:52 97 Room Air 07/23/17 07:00 98.4 66 19 148/75 (99) 98.4 Physical Exam General: Alert, Oriented X3, Cooperative, No acute distress Heart: Regular rate (SR), Normal S1, Normal S2, Other (2/6 systolic murmur to LLS border) Abdomen: Other (diffuse tenderness with more pain to right side abdomen with palpation) Extremities: No cyanosis, No edema Skin: No breakdown, No significant lesion Labs LABS Laboratory Tests Test 07/22/17 10:50 07/22/17 15:05 07/22/17 20:30 07/23/17 03:30 White Blood Count 9.7 x10^3/uL (4.0-11.0) 12.5 x10^3/uL (4.0-11.0) Red Blood Count 4.44 x10^6/uL (3.50-5.40) 4.25 x10^6/uL (3.50-5.40) Hemoglobin 14.7 g/dL (12.0-15.5) 13.5 g/dL (12.0-15.5) Hematocrit 42.6 % (36.0-47.0) 42.3 % (36.0-47.0) Mean Corpuscular Volume 96 fL (79-100) 100 fL (79-100) Mean Corpuscular Hemoglobin 33 pg (25-35) 32 pg (25-35) Mean Corpuscular Hemoglobin Concent 35 g/dL (31-37) 32 g/dL (31-37) Red Cell Distribution Width 14.9 % (11.5-14.5) 14.8 % (11.5-14.5) Platelet Count 134 x10^3/uL (140-400) 113 x10^3/uL (140-400) Neutrophils (%) (Auto) 85 % (31-73) 84 % (31-73) Lymphocytes (%) (Auto) 9 % (24-48) 9 % (24-48) Monocytes (%) (Auto) 5 % (0-9) 7 % (0-9) Eosinophils (%) (Auto) 0 % (0-3) 0 % (0-3) Basophils (%) (Auto) 0 % (0-3) 0 % (0-3) Neutrophils # (Auto) 8.3 x10^3uL (1.8-7.7) 10.6 x10^3uL (1.8-7.7) Lymphocytes # (Auto) 0.9 x10^3/uL (1.0-4.8) 1.1 x10^3/uL (1.0-4.8) Monocytes # (Auto) 0.5 x10^3/uL (0.0-1.1) 0.8 x10^3/uL (0.0-1.1) Eosinophils # (Auto) 0.0 x10^3/uL (0.0-0.7) 0.0 x10^3/uL (0.0-0.7) Basophils # (Auto) 0.0 x10^3/uL (0.0-0.2) 0.0 x10^3/uL (0.0-0.2) Segmented Neutrophils % 80 % (35-66) Band Neutrophils % 5 % (0-9) Lymphocytes % 8 % (24-48) Monocytes % 7 % (0-10) Platelet Estimate Decreased (ADEQUATE) Prothrombin Time 12.1 SEC (11.7-14.0) Prothromb Time International Ratio 1.0 (0.8-1.1) Activated Partial Thromboplast Time 25 SEC (24-38) D-Dimer (Betzy) 2.14 ug/mlFEU (0.00-0.50) Urine Collection Type Unknown Urine Color [place] Urine Clarity Cloudy Urine pH 5.5 Urine Specific [place] 1.020 Urine Protein 30 mg/dL (NEG-TRACE) Urine Glucose (UA) Negative mg/dL (NEG) Urine Ketones (Stick) Trace mg/dL (NEG) Urine Blood Trace (NEG) Urine Nitrite Negative (NEG) Urine Bilirubin Negative (NEG) Urine Urobilinogen Dipstick 0.2 mg/dL (0.2 mg/dL) Urine Leukocyte Esterase Moderate (NEG) Urine RBC 0 /HPF (0-2) Urine WBC 5-10 /HPF (0-4) Urine Squamous Epithelial Cells Many /LPF Urine Bacteria Few /HPF (0-FEW) Urine Mucus Mod /LPF Sodium Level 137 mmol/L (136-145) 136 mmol/L (136-145) Potassium Level 3.2 mmol/L (3.5-5.1) 3.5 mmol/L (3.5-5.1) Chloride Level 96 mmol/L (98-107) 95 mmol/L (98-107) Carbon Dioxide Level 33 mmol/L (21-32) 30 mmol/L (21-32) Anion Gap 8 (6-14) 11 (6-14) Blood Urea Nitrogen 7 mg/dL (7-20) 7 mg/dL (7-20) Creatinine 0.9 mg/dL (0.6-1.0) 0.7 mg/dL (0.6-1.0) Estimated GFR (Cockcroft-Gault) 76.3 101.9 BUN/Creatinine Ratio 8 (6-20) 10 (6-20) Glucose Level 153 mg/dL (70-99) 60 mg/dL (70-99) Calcium Level 9.1 mg/dL (8.5-10.1) 9.2 mg/dL (8.5-10.1) Magnesium Level 1.3 mg/dL (1.8-2.4) 2.9 mg/dL (1.8-2.4) Total Bilirubin 1.1 mg/dL (0.2-1.0) 0.7 mg/dL (0.2-1.0) Aspartate Amino Transf (AST/SGOT) 117 U/L (15-37) 90 U/L (15-37) Alanine Aminotransferase (ALT/SGPT) 97 U/L (14-59) 80 U/L (14-59) Alkaline Phosphatase 165 U/L (46-116) 155 U/L (46-116) Creatine Kinase 273 U/L (26-192) Creatine Kinase MB (Mass) 2.2 ng/mL (0.0-3.6) Creatine Kinase MB Relative Index 0.8 % (0-4) Troponin I Quantitative 0.167 ng/mL (0.000-0.055) 0.205 ng/mL (0.000-0.055) 0.161 ng/mL (0.000-0.055) 0.149 ng/mL (0.000-0.055) SO-Ifz-Z-Type Natriuretic Peptide 2270 pg/mL (0-124) Total Protein 7.6 g/dL (6.4-8.2) 7.4 g/dL (6.4-8.2) Albumin 3.9 g/dL (3.4-5.0) 3.6 g/dL (3.4-5.0) Albumin/Globulin Ratio 1.1 (1.0-1.7) 0.9 (1.0-1.7) Triglycerides Level 78 mg/dL (0-150) Cholesterol Level 182 mg/dL (0-200) LDL Cholesterol, Calculated 47 mg/dL (0-100) VLDL Cholesterol, Calculated 16 mg/dL (0-40) Non-HDL Cholesterol Calculated 63 mg/dL (0-129) HDL Cholesterol 119 mg/dL (40-60) Cholesterol/HDL Ratio 1.5 Amylase Level 136 U/L (25-115) Lipase 1213 U/L (73-393) 665 U/L (73-393) Thyroid Stimulating Hormone (TSH) 1.864 uIU/mL (0.358-3.74) Urine Opiates Screen Neg (NEG) Urine Methadone Screen Neg (NEG) Urine Barbiturates Neg (NEG) Urine Phencyclidine Screen Neg (NEG) Urine Amphetamine/Methamphetamine Neg (NEG) Urine Benzodiazepines Screen Neg (NEG) Urine Cocaine Screen Neg (NEG) Urine Cannabinoids Screen Pos (NEG) Ethyl Alcohol Level < 10 mg/dL (0-10) Urine Ethyl Alcohol Neg (NEG) NANCY DANG MD Jul 23, 2017 09:54
[2017-07-23] MEDS: MULTIVIT INFUSN,ADULT 4,VIT K 10 ML, THIAMINE 100 MG, FOLIC ACID 1 MG in IV NORMAL SALI... IV SCH (10:35)
[2017-07-23] MEDS: chlordiazePOXIDE HCL 25 MG CAPSULE PO SCH ×3 (10:35→22:00)
[2017-07-23] MEDS: LISINOPRIL 10 MG TABLET PO SCH (10:35)
[2017-07-23 11:00] VITALS: BP 135/75
--- NOTE | 2017-07-23 11:13 | CARD ---
APPROVED REPORT EXAM: Two-dimensional and M-mode echocardiogram with Doppler and color Doppler. Other Information Quality : GoodHR: 64bpm Rhythm : NSR INDICATION Chest Pain RISK FACTORS Hypertension 2D DIMENSIONS RVDd3.1 (2.9-3.5cm)Left Atrium(2D)3.4 (1.6-4.0cm) IVSd1.1 (0.7-1.1cm)Aortic Root(2D)3.0 (2.0-3.7cm) LVDd4.0 (3.9-5.9cm)LVOT Diameter2.1 (1.8-2.4cm) PWd1.1 (0.7-1.1cm)LVDs2.5 (2.5-4.0cm) FS (%) 36.5 %SV45.6 ml LVEF(%)66.8 (>50%) Aortic Valve AoV Peak Yonis.222.2cm/sAoV VTI38.5cm AO Peak GR.19.8mmHgLVOT Peak Yonis.124.8cm/s AO Mean GR.8mmHgAVA (VMAX)2.03cm2 Mitral Valve MV E Gkjyzrjg993.5cm/sMV E Peak Gr.4mmHg MV DECEL [id number] A Ptnpogov53.3cm/s MV E Mean Gr.2mmHgE/A Ratio1.2 MV A [id number] Pulmonary Valve PV Peak Hubuhfhc340.8cm/s Tricuspid Valve TR P. Qrwhhiop021co/sTR Peak Gr.18mmHg Pulmonary Vein S1 Yoycmije92.0cm/sD2 Lspvyrju63.1cm/s PVa aqeycpzg23kcvo LEFT VENTRICLE The left ventricle is normal size. There is mild concentric left ventricular hypertrophy. The left ve ntricular systolic function is normal and the ejection fraction is within normal range. The Ejection Fraction is 60-65%. There is normal LV segmental wall motion. The left ventricular diastolic function and filling is normal for age. RIGHT VENTRICLE The right ventricle is normal size. There is normal right ventricular wall thickness. The right ventr icular systolic function is normal. ATRIA The left atrium size is normal. The right atrium size is normal. The interatrial septum is intact wit h no evidence for an atrial septal defect or patent foramen ovale as noted on 2-D or Doppler imaging. AORTIC VALVE The aortic valve is mildly thickened. The aortic valve is trileaflet. Doppler and Color Flow revealed no significant aortic regurgitation. There is no significant aortic valvular stenosis. MITRAL VALVE The mitral valve leaflets are mildly thickened. There is no evidence of mitral valve prolapse. There is no mitral valve stenosis. Doppler and Color Flow revealed no mitral valve regurgitation noted. TRICUSPID VALVE Doppler and Color Flow revealed trace tricuspid regurgitation. The pulmonary artery systolic pressure is estimated at 21 mmHg. There is no pulmonary hypertension. PULMONIC VALVE The pulmonary valve is not well visualized but appears to open adequately. Doppler and Color Flow rev ealed trace pulmonic valvular regurgitation. There is no pulmonic valvular stenosis by spectral Doppl er. GREAT VESSELS The aortic root is normal in size. The ascending aorta is normal in size. The IVC is normal in size a nd collapses >50% with inspiration. PERICARDIAL EFFUSION There is no evidence of significant pericardial effusion. Critical Notification Critical Value: No <Conclusion> The left ventricular systolic function is normal and the ejection fraction is within normal range. Th e Ejection Fraction is 60-65%. There is normal LV segmental wall motion.
--- NOTE | 2017-07-23 12:35 | PDOC ---
Subjective: Subjective: Abd pain - upper and lower. Nausea w/o vomiting. No stools. Tolerating clears. Morphine doesn't last long enough. Objective: Objective: D/w RN - tearful this morning because of abd pain but wanting to eat. Vital Signs: Vital Signs Date Time Temp Pulse Resp B/P (MAP) Pulse Ox O2 Delivery O2 Flow Rate FiO2 07/23/17 10:35 66 148/75 07/23/17 10:06 97 Room Air 07/23/17 07:00 98.4 19 98.4 Labs: Laboratory Tests Test 07/22/17 15:05 07/22/17 20:30 07/23/17 03:30 Troponin I Quantitative 0.205 ng/mL 0.161 ng/mL 0.149 ng/mL White Blood Count 12.5 x10^3/uL Red Blood Count 4.25 x10^6/uL Hemoglobin 13.5 g/dL Hematocrit 42.3 % Mean Corpuscular Volume 100 fL Mean Corpuscular Hemoglobin 32 pg Mean Corpuscular Hemoglobin Concent 32 g/dL Red Cell Distribution Width 14.8 % Platelet Count 113 x10^3/uL Neutrophils (%) (Auto) 84 % Lymphocytes (%) (Auto) 9 % Monocytes (%) (Auto) 7 % Eosinophils (%) (Auto) 0 % Basophils (%) (Auto) 0 % Neutrophils # (Auto) 10.6 x10^3uL Lymphocytes # (Auto) 1.1 x10^3/uL Monocytes # (Auto) 0.8 x10^3/uL Eosinophils # (Auto) 0.0 x10^3/uL Basophils # (Auto) 0.0 x10^3/uL Sodium Level 136 mmol/L Potassium Level 3.5 mmol/L Chloride Level 95 mmol/L Carbon Dioxide Level 30 mmol/L Anion Gap 11 Blood Urea Nitrogen 7 mg/dL Creatinine 0.7 mg/dL Estimated GFR (Cockcroft-Gault) 101.9 BUN/Creatinine Ratio 10 Glucose Level 60 mg/dL Calcium Level 9.2 mg/dL Magnesium Level 2.9 mg/dL Total Bilirubin 0.7 mg/dL Aspartate Amino Transf (AST/SGOT) 90 U/L Alanine Aminotransferase (ALT/SGPT) 80 U/L Alkaline Phosphatase 155 U/L Total Protein 7.4 g/dL Albumin 3.6 g/dL Albumin/Globulin Ratio 0.9 Lipase 665 U/L PE: GEN: NAD LUNGS: clear HEART: RRR ABD: BLQ, periumbilical, epigastric pain, BS+ NEURO/PSYCH: A & O 3 OTHER: daughter present A/P: Abd pain, nausea, (vomiting and diarrhea resolved) -sudden onset this week, but weight loss over the past year -s/p cholecystectomy -s/p gastric resection for cancer in 1998 - no EGD since -colonoscopy @ [facility] earlier this year -elevated LFTs and lipase - improved (Hep panel pending); alcohol abuse -on CT: mild fat stranding identified about the pancreas, hepatic steatosis, and mild non-specific colonic wall thickening Elevated troponin -per cardiology Leukocytosis -- Viral illness vs pancreatitis - pain persists today, lipase improved. Defer pain management to primary. Keep to clears for now. PALMA IRVING Jul 23, 2017 12:35
--- NOTE | 2017-07-23 13:46 | EKG ---
[facility] [address] [place] [address] Test Date: 2017-07-23 Test Time: 13:42:53 Pat Name: ROSSANA DALEY Department: Room: 263 1 Gender: F Generator Mechanic: AT : 1955 Requested By: BARBER NIELSON Order Number: [id number] Reading MD: [place] Measurements Intervals [place] Rate: 58 P: 27 UT: 128 QRS: -22 QRSD: 84 T: 42 QT: 422 QTc: 418 Interpretive Statements SINUS RHYTHM LEFTWARD AXIS QRS(T) CONTOUR ABNORMALITY CONSIDER ANTEROSEPTAL MYOCARDIAL DAMAGE POSSIBLY ABNORMAL ECG RI6.01 No previous ECG available for comparison Electronically Signed On 08-11-2017 10:34:01 CDT by [place]
[2017-07-23] MEDS: oxyCODONE/APAP 5/325 1 TAB TABLET PO PRN (14:30)
[2017-07-23 15:00] VITALS: BP 117/57
--- NOTE | 2017-07-23 16:01 | PDOC ---
CARDIO Progress Notes Date and Time Date of Service 07/23/2017 Time of Evaluation 1540 Subjective Subjective: No Chest Pain, No shortness of breath, No Palpitations, No Dizziness, Other (still has abd pain) Vitals Vitals Vital Signs Date Time Temp Pulse Resp B/P (MAP) Pulse Ox O2 Delivery O2 Flow Rate FiO2 07/23/17 15:33 99 Room Air 07/23/17 11:00 98.9 58 20 135/75 (95) 98.9 Weight Weight [ ] Laboratory Labs Laboratory Tests Test 07/22/17 20:30 07/23/17 03:30 Troponin I Quantitative 0.161 ng/mL (0.000-0.055) 0.149 ng/mL (0.000-0.055) White Blood Count 12.5 x10^3/uL (4.0-11.0) Red Blood Count 4.25 x10^6/uL (3.50-5.40) Hemoglobin 13.5 g/dL (12.0-15.5) Hematocrit 42.3 % (36.0-47.0) Mean Corpuscular Volume 100 fL (79-100) Mean Corpuscular Hemoglobin 32 pg (25-35) Mean Corpuscular Hemoglobin Concent 32 g/dL (31-37) Red Cell Distribution Width 14.8 % (11.5-14.5) Platelet Count 113 x10^3/uL (140-400) Neutrophils (%) (Auto) 84 % (31-73) Lymphocytes (%) (Auto) 9 % (24-48) Monocytes (%) (Auto) 7 % (0-9) Eosinophils (%) (Auto) 0 % (0-3) Basophils (%) (Auto) 0 % (0-3) Neutrophils # (Auto) 10.6 x10^3uL (1.8-7.7) Lymphocytes # (Auto) 1.1 x10^3/uL (1.0-4.8) Monocytes # (Auto) 0.8 x10^3/uL (0.0-1.1) Eosinophils # (Auto) 0.0 x10^3/uL (0.0-0.7) Basophils # (Auto) 0.0 x10^3/uL (0.0-0.2) Sodium Level 136 mmol/L (136-145) Potassium Level 3.5 mmol/L (3.5-5.1) Chloride Level 95 mmol/L (98-107) Carbon Dioxide Level 30 mmol/L (21-32) Anion Gap 11 (6-14) Blood Urea Nitrogen 7 mg/dL (7-20) Creatinine 0.7 mg/dL (0.6-1.0) Estimated GFR (Cockcroft-Gault) 101.9 BUN/Creatinine Ratio 10 (6-20) Glucose Level 60 mg/dL (70-99) Calcium Level 9.2 mg/dL (8.5-10.1) Magnesium Level 2.9 mg/dL (1.8-2.4) Total Bilirubin 0.7 mg/dL (0.2-1.0) Aspartate Amino Transf (AST/SGOT) 90 U/L (15-37) Alanine Aminotransferase (ALT/SGPT) 80 U/L (14-59) Alkaline Phosphatase 155 U/L (46-116) Total Protein 7.4 g/dL (6.4-8.2) Albumin 3.6 g/dL (3.4-5.0) Albumin/Globulin Ratio 0.9 (1.0-1.7) Lipase 665 U/L (73-393) Physical Exam HEENT: Neck Supple W Full Motion Chest: Symmetric LUNGS: Clear to Auscultation Heart: S1S2, RRR (SR/SB) Abdomen: Soft N/T Extremities: No Calf Tenderness Neurology: alert, oriented, follow commands Assessment Assessment 1. Atypical CP: Noncardiac, MSK/GI from retching/vomiting. TTE with normal EF and wall motion 2. Abdominal pain with n/v/diarrhea and possible pancreatitis/colitis: GI symptoms better and eventually admitted alcoholism. 3. Dehydration: improved with IVF 4. Elevated troponin:peaked at 0.2. Possibly demand mediated. Repeated EKG much better after K and Mg corrected. 6. Hypokalemia/Hypomagnesemia: resolved 7. Accelerated HTN: controlled 8. Hx of stomach CA with partial gastric resection: in 1998 no chemo or radiation. 9. Asymptomatic Sinus bradycardia: lowest at upper 40s otherwise 50-60s. 10. NSVT: x3 very brief episodes 07/22 when K and Mg were low. None further since lyte correction. 11. Alcoholism/tobaccoism/marijuana use Recommendations 1. IVF. Follow GI treatment plan 2. MPI once GI status is well controlled if still here on Wednesday otherwise will plan as an outpt. . 3. Continue with lisinopril. No BB. Hydralazine IV PRN. 5. No statin but lipids are well controlled with HDL at 119. 6. Smoking cessation, abstinence from ETOH and marijuana. BARBER NIELSON APRN Jul 23, 2017 16:01
[2017-07-23 19:05] VITALS: BP 127/65
[2017-07-23] MEDS: oxyCODONE/APAP 10/325 1 TAB TABLET PO PRN (19:16)
[2017-07-23] MEDS: FAMOTIDINE 20 MG/2 ML VIAL IVP SCH (21:07)
[2017-07-23 21:09] LABS: HEP A IGM ABDY Positive (Negative)
[2017-07-23 23:00] VITALS: BP 108/51
[2017-07-24] MEDS: POTASSIUM CHLORIDE 30 MEQ in IV 1/2 NORMAL SALINE 1,000 ML IV SCH ×4 (00:11→20:24)
[2017-07-24] MEDS: oxyCODONE/APAP 10/325 1 TAB TABLET PO PRN ×2 (00:14→08:11)
[2017-07-24 03:30] VITALS: BP 130/62
[2017-07-24] MEDS: chlordiazePOXIDE HCL 25 MG CAPSULE PO SCH ×3 (04:00→16:00)
[2017-07-24 05:50] LABS: BASO % 0 % (0-3); EOS % 3 % (0-3); HEMATOCRIT 35.5 % (36.0-47.0); HEMOGLOBIN 11.7 g/dL (12.0-15.5); LYMPH # 1.9 x10^3/uL (1.0-4.8); LYMPH % 21 % (24-48); MEAN CORPUSCULAR HEMOGLOBIN 33 pg (25-35); MEAN CORPUSCULAR HGB CONC 33 g/dL (31-37); MEAN CORPUSCULAR VOLUME 99 fL (79-100); MONO % 7 % (0-9); NEUT % 70 % (31-73); PLATELET COUNT 98 x10^3/uL (140-400); RED CELL DISTRIBUTION WIDTH 15.1 % (11.5-14.5); WHITE BLOOD COUNT 9.4 x10^3/uL (4.0-11.0)
[2017-07-24 06:07] LABS: ALBUMIN 2.8 g/dL (3.4-5.0); ALBUMIN/GLOBULIN RATIO 0.8 (1.0-1.7); CALCIUM 8.8 mg/dL (8.5-10.1); CREATININE 0.7 mg/dL (0.6-1.0); GFR 101.9; POTASSIUM 3.7 mmol/L (3.5-5.1); TOTAL BILIRUBIN 0.8 mg/dL (0.2-1.0); TOTAL PROTEIN 6.3 g/dL (6.4-8.2)
[2017-07-24 07:00] VITALS: BP 134/66
[2017-07-24] MEDS: MULTIVIT INFUSN,ADULT 4,VIT K 10 ML, THIAMINE 100 MG, FOLIC ACID 1 MG in IV NORMAL SALI... IV SCH (08:11)
[2017-07-24] MEDS: LISINOPRIL 10 MG TABLET PO SCH (09:00)
[2017-07-24 11:00] VITALS: BP 151/126
--- NOTE | 2017-07-24 12:18 | PDOC3 ---
Discharge Summary Visit Information Date of Admission: Jul 22, 2017 Date of Discharge: Jul 24, 2017 Admitting Diagnosis Comment: 1. Troponin leak: decreasing. cardiology following. Lipid profile WNL 2. Chest pain: persisting, although unclear if cardiac or GI. appreciate GI service input; pt has hx of gastric resection, which may complicate issue 3. HTN: not well controlled. with borderline tessy, will increase home lisinopril. cont PRN hydralazine 4. Pancreatitis: improving lipase. suspect EtOH etiology. clear liquids today. 5. Pain control: Morphine PRN 6. Hepatitis: persisting transaminitis. suspect EtOH. hep panel pending 7. EtOH abuse: monitor wor W/D sx 8. Prophylaxis: on Lovenox, H2B. Final Diagnosis Problems Medical Problems: (1) Accelerated hypertension Status: Acute (2) Acute pancreatitis Status: Acute (3) Alcohol abuse Status: Acute (4) Colitis Status: Acute Brief Hospital Course Allergies Allergies Coded Allergies Type Severity Reaction Last Updated Verified Penicillins Allergy Intermediate rash 07/22/17 Yes coconut Allergy Intermediate RASH 07/22/17 Yes Vital Signs Vital Signs Date Time Temp Pulse Resp B/P (MAP) Pulse Ox O2 Delivery O2 Flow Rate FiO2 07/24/17 09:56 100 Room Air 07/24/17 09:00 67 134/66 07/24/17 07:00 98.2 18 98.2 Lab Results Laboratory Tests Test 07/22/17 15:05 07/22/17 20:30 07/23/17 03:30 07/23/17 10:15 Troponin I Quantitative 0.205 ng/mL (0.000-0.055) 0.161 ng/mL (0.000-0.055) 0.149 ng/mL (0.000-0.055) White Blood Count 12.5 x10^3/uL (4.0-11.0) Red Blood Count 4.25 x10^6/uL (3.50-5.40) Hemoglobin 13.5 g/dL (12.0-15.5) Hematocrit 42.3 % (36.0-47.0) Mean Corpuscular Volume 100 fL (79-100) Mean Corpuscular Hemoglobin 32 pg (25-35) Mean Corpuscular Hemoglobin Concent 32 g/dL (31-37) Red Cell Distribution Width 14.8 % (11.5-14.5) Platelet Count 113 x10^3/uL (140-400) Neutrophils (%) (Auto) 84 % (31-73) Lymphocytes (%) (Auto) 9 % (24-48) Monocytes (%) (Auto) 7 % (0-9) Eosinophils (%) (Auto) 0 % (0-3) Basophils (%) (Auto) 0 % (0-3) Neutrophils # (Auto) 10.6 x10^3uL (1.8-7.7) Lymphocytes # (Auto) 1.1 x10^3/uL (1.0-4.8) Monocytes # (Auto) 0.8 x10^3/uL (0.0-1.1) Eosinophils # (Auto) 0.0 x10^3/uL (0.0-0.7) Basophils # (Auto) 0.0 x10^3/uL (0.0-0.2) Sodium Level 136 mmol/L (136-145) Potassium Level 3.5 mmol/L (3.5-5.1) Chloride Level 95 mmol/L (98-107) Carbon Dioxide Level 30 mmol/L (21-32) Anion Gap 11 (6-14) Blood Urea Nitrogen 7 mg/dL (7-20) Creatinine 0.7 mg/dL (0.6-1.0) Estimated GFR (Cockcroft-Gault) 101.9 BUN/Creatinine Ratio 10 (6-20) Glucose Level 60 mg/dL (70-99) Calcium Level 9.2 mg/dL (8.5-10.1) Magnesium Level 2.9 mg/dL (1.8-2.4) Total Bilirubin 0.7 mg/dL (0.2-1.0) Aspartate Amino Transf (AST/SGOT) 90 U/L (15-37) Alanine Aminotransferase (ALT/SGPT) 80 U/L (14-59) Alkaline Phosphatase 155 U/L (46-116) Total Protein 7.4 g/dL (6.4-8.2) Albumin 3.6 g/dL (3.4-5.0) Albumin/Globulin Ratio 0.9 (1.0-1.7) Lipase 665 U/L (73-393) Hepatitis A IgM Antibody Positive (Negative) Hepatitis B Surface Antigen Negative (Negative) Hepatitis B Core IgM Antibody Negative (Negative) Hepatitis C Antibody 0.3 s/co ratio (0.0-0.9) Test 07/24/17 04:30 White Blood Count 9.4 x10^3/uL (4.0-11.0) Red Blood Count 3.60 x10^6/uL (3.50-5.40) Hemoglobin 11.7 g/dL (12.0-15.5) Hematocrit 35.5 % (36.0-47.0) Mean Corpuscular Volume 99 fL (79-100) Mean Corpuscular Hemoglobin 33 pg (25-35) Mean Corpuscular Hemoglobin Concent 33 g/dL (31-37) Red Cell Distribution Width 15.1 % (11.5-14.5) Platelet Count 98 x10^3/uL (140-400) Neutrophils (%) (Auto) 70 % (31-73) Lymphocytes (%) (Auto) 21 % (24-48) Monocytes (%) (Auto) 7 % (0-9) Eosinophils (%) (Auto) 3 % (0-3) Basophils (%) (Auto) 0 % (0-3) Neutrophils # (Auto) 6.5 x10^3uL (1.8-7.7) Lymphocytes # (Auto) 1.9 x10^3/uL (1.0-4.8) Monocytes # (Auto) 0.6 x10^3/uL (0.0-1.1) Eosinophils # (Auto) 0.3 x10^3/uL (0.0-0.7) Basophils # (Auto) 0.0 x10^3/uL (0.0-0.2) Sodium Level 135 mmol/L (136-145) Potassium Level 3.7 mmol/L (3.5-5.1) Chloride Level 99 mmol/L (98-107) Carbon Dioxide Level 31 mmol/L (21-32) Anion Gap 5 (6-14) Blood Urea Nitrogen 5 mg/dL (7-20) Creatinine 0.7 mg/dL (0.6-1.0) Estimated GFR (Cockcroft-Gault) 101.9 BUN/Creatinine Ratio 7 (6-20) Glucose Level 79 mg/dL (70-99) Calcium Level 8.8 mg/dL (8.5-10.1) Total Bilirubin 0.8 mg/dL (0.2-1.0) Aspartate Amino Transf (AST/SGOT) 46 U/L (15-37) Alanine Aminotransferase (ALT/SGPT) 54 U/L (14-59) Alkaline Phosphatase 147 U/L (46-116) Total Protein 6.3 g/dL (6.4-8.2) Albumin 2.8 g/dL (3.4-5.0) Albumin/Globulin Ratio 0.8 (1.0-1.7) Lipase 149 U/L (73-393) Laboratory Tests Test 07/24/17 04:30 White Blood Count 9.4 x10^3/uL (4.0-11.0) Red Blood Count 3.60 x10^6/uL (3.50-5.40) Hemoglobin 11.7 g/dL (12.0-15.5) Hematocrit 35.5 % (36.0-47.0) Mean Corpuscular Volume 99 fL (79-100) Mean Corpuscular Hemoglobin 33 pg (25-35) Mean Corpuscular Hemoglobin Concent 33 g/dL (31-37) Red Cell Distribution Width 15.1 % (11.5-14.5) Platelet Count 98 x10^3/uL (140-400) Neutrophils (%) (Auto) 70 % (31-73) Lymphocytes (%) (Auto) 21 % (24-48) Monocytes (%) (Auto) 7 % (0-9) Eosinophils (%) (Auto) 3 % (0-3) Basophils (%) (Auto) 0 % (0-3) Neutrophils # (Auto) 6.5 x10^3uL (1.8-7.7) Lymphocytes # (Auto) 1.9 x10^3/uL (1.0-4.8) Monocytes # (Auto) 0.6 x10^3/uL (0.0-1.1) Eosinophils # (Auto) 0.3 x10^3/uL (0.0-0.7) Basophils # (Auto) 0.0 x10^3/uL (0.0-0.2) Sodium Level 135 mmol/L (136-145) Potassium Level 3.7 mmol/L (3.5-5.1) Chloride Level 99 mmol/L (98-107) Carbon Dioxide Level 31 mmol/L (21-32) Anion Gap 5 (6-14) Blood Urea Nitrogen 5 mg/dL (7-20) Creatinine 0.7 mg/dL (0.6-1.0) Estimated GFR (Cockcroft-Gault) 101.9 BUN/Creatinine Ratio 7 (6-20) Glucose Level 79 mg/dL (70-99) Calcium Level 8.8 mg/dL (8.5-10.1) Total Bilirubin 0.8 mg/dL (0.2-1.0) Aspartate Amino Transf (AST/SGOT) 46 U/L (15-37) Alanine Aminotransferase (ALT/SGPT) 54 U/L (14-59) Alkaline Phosphatase 147 U/L (46-116) Total Protein 6.3 g/dL (6.4-8.2) Albumin 2.8 g/dL (3.4-5.0) Albumin/Globulin Ratio 0.8 (1.0-1.7) Lipase 149 U/L (73-393) Brief Hospital Course Ms. Hickey is a 62 old AA female admitted for some CP but she also did have prominent GI sxs, nausea, emesis? so comanaged with GI. MPI was planned once GI sxs stabilized. If gi sxs got worse, they were planning on EGD, But she got better. So she went home on the weekend with OP MPI, REquested pO percocet I see her on day of dc only. DispO; home Seen and examined marcela Salinas tiome 32 mins in discussion etc Discharge Information Condition at Discharge: Improved, Stable Disposition/Orders: D/C to Home Scheduled Hydrochlorothiazide (Hydrochlorothiazide Tablet ), 25 MG PO DAILY, (Reported) Lisinopril (Lisinopril), 10 MG PO DAILY, (Reported) Scheduled PRN Aspirin/Sod Bicarb/Citric Acid ([place] Tab Eff), 1 EACH PO PRN PRN for INDIGESTION, (Reported) Miscellaneous Medications Cyanocobalamin (Vitamin B-12) (Cyanocobalamin Injection), 50,000 MCG IJ, ( Reported) GLENDY SALCIDO MD Jul 24, 2017 12:18
[2017-07-24 15:00] VITALS: BP 137/75
[2017-07-24] MEDS: oxyCODONE/APAP 5/325 1 TAB TABLET PO PRN ×2 (15:17→21:10)
[2017-07-24 19:00] VITALS: BP 157/63
[2017-07-24] MEDS: FAMOTIDINE 20 MG/2 ML VIAL IVP SCH (21:10)
[2017-07-24 23:21] VITALS: BP 139/65
[2017-07-25] MEDS: oxyCODONE/APAP 5/325 1 TAB TABLET PO PRN (03:07)
[2017-07-25 03:30] VITALS: BP 129/84
[2017-07-25] MEDS: POTASSIUM CHLORIDE 30 MEQ in IV 1/2 NORMAL SALINE 1,000 ML IV SCH (04:22)
[2017-07-25 07:00] VITALS: BP 146/86
[2017-07-25] MEDS: LISINOPRIL 10 MG TABLET PO SCH (09:25)
[2017-07-25] MEDS: MULTIVIT INFUSN,ADULT 4,VIT K 10 ML, THIAMINE 100 MG, FOLIC ACID 1 MG in IV NORMAL SALI... IV SCH (09:26)
[2017-07-25 11:00] VITALS: BP 146/87
--- NOTE | 2017-07-25 13:02 | PDOC ---
Provider Note Provider Note Pt did not dc yesterday Did not feel good, some nausea NOw better UP eating her reg tray OP MPI and OP EGD if sxs perisst Cleared by specialsists Seen and examined Rx inc GLENDY Sanabria MD Jul 25, 2017 13:02
== END 2017-07-25 14:16 | disposition home or self-care (01) | DRG 439 ==
LOC: ER 10:19 → 2 SOUTH 13:15
PROVIDERS: ADMIT Internal Medicine Hematology & Oncology; ATTEND Internal Medicine Hematology & Oncology
DX: K85.20 Alcohol induced acute pancreatitis without necrosis or infection (principal); I47.1 Supraventricular tachycardia; K75.9 Inflammatory liver disease, unspecified; K76.0 Fatty (change of) liver, not elsewhere classified; K52.9 Noninfective gastroenteritis and colitis, unspecified; E83.42 Hypomagnesemia; I10 Essential (primary) hypertension; E87.6 Hypokalemia; F10.10 Alcohol abuse, uncomplicated; E86.0 Dehydration; M19.90 Unspecified osteoarthritis, unspecified site; F17.210 Nicotine dependence, cigarettes, uncomplicated; F12.90 Cannabis use, unspecified, uncomplicated; Z87.442 Personal history of urinary calculi; Z91.018 Allergy to other foods; Z88.0 Allergy status to penicillin; Z90.49 Acquired absence of other specified parts of digestive tract; Z85.028 Personal history of other malignant neoplasm of stomach; Z82.49 Family history of ischemic heart disease and other diseases of the circulatory system; D64.9 Anemia, unspecified; R00.1 Bradycardia, unspecified; R07.89 Other chest pain
CPT/HCPCS: 36415; 71010; 71275; 74177; 80053; 80061; 80074; 80307; 81001; 82150; 82553; 83690; 83735; 83880; 84443; 84484; 85007; 85025; 85379; 85610; 85730; 93005; 93306; 96365; 96366; 96375; G0480; J0360; J2270; J2405; J3475; J3480; J7030; Q9967; S0028; 99285-25; G0479